=== PATIENT | female | born 1990 | race Caucasian/White ===

== ENCOUNTER → 2021-09-01 06:42 | Outpatient (CLI) | payer OTHER, MEDICAID, SELFPAY ==
--- NOTE | 2021-09-01 06:43 | DI.MRI.S_ITS ---
PROCEDURE: MR HEAD/BRAIN WO CON INDICATIONS: elevated right eye pressure, chronic headache TECHNIQUE: Noncontrast axial T1 spin echo, axial T2 fast spin echo, sagittal and axial FLAIR, coronal T2 fast spin echo, axial gradient echo, axial diffusion and ADC through the brain. COMPARISON: None. FINDINGS: Image quality: Excellent. CSF Spaces: Basal cisterns are patent. No extra-axial fluid collections. Ventricles are normal in size and shape. Brain: No intracranial masses or hemorrhage. Rivas/white matter interface is normal. Brainstem appears normal. Diffusion-weighted images demonstrate no acute ischemic insult. No chronic ischemic insults. Normal intravascular flow voids are present. Skull and face: Calvarium has normal marrow signal. Orbits appear normal. Sinuses: Sinuses and mastoids are clear. IMPRESSION: Unremarkable brain MRI. No evidence acute stroke, hemorrhage, or mass. Normal brain parenchyma. Dictated by: Mikey Albrecht M.D. on 09/01/2021 at 7:59 Approved by: Mikey Albrecht M.D. on 09/01/2021 at 8:02
== END ==
PROVIDERS: PCP Family Medicine; Referring Provider Family Medicine; Visit Provider Family Medicine
DX: G89.29 Other chronic pain (principal); H26.9 Unspecified cataract; H40.9 Unspecified glaucoma; H57.11 Ocular pain, right eye; Q07.8 Other specified congenital malformations of nervous system; R51.9 Headache, unspecified
CPT/HCPCS: 70551